=== PATIENT | female | born 1975 | race Hispanic/Latino ===

== ENCOUNTER 2024-07-03 19:25 | Observation (INO) ==
--- NOTE | 2024-07-03 20:22 | Emergency Department Note ---
HPI - Nausea/Vomiting/Diarrhea General Chief complaint: Nausea/Vomiting/Diarrhea Stated complaint: NAUSEA,VOMITING,DIARRHEA Time Seen by Provider: 07/03/24 19:50 Source: patient Mode of arrival: walk-in Limitations: no limitations History of Present Illness HPI Narrative: 49-year-old female presents to the ER with complaint of nausea and vomiting that started today, patient reports she was saw her Wednesday for similar issue and was given fluids as well as antinausea medications and that she felt better on Wednesday; however, patient reports that today she became much sicker and is unable to keep anything down. MD elicited complaint: Reports nausea, vomiting, diarrhea and abdominal pain Onset (ago): day(s) (1) Description of vomiting: Reports bilious Description of diarrhea: Reports watery Associated nausea: Yes Associated abdominal pain: Yes Location of pain: Reports diffuse Radiation: Reports diffuse Pain consistency: Reports constant Severity: moderate Quality: Reports cramping, aching and constant Exacerbating factors: Reports eating, vomiting and movement Relieving factors: Reports none Context: Reports other (none) Associated symptoms: Reports myalgias, loss of appetite, nausea/vomiting and weakness Treatment prior to arrival: Reports none Related Data Previous Rx's Medication Instructions Recorded cyclobenzaprine 10 mg tablet 10 mg PO TID PRN muscle spasm #15 07/01/24 tabs ketorolac 10 mg tablet 10 mg PO Q6H PRN pain #20 tabs 07/01/24 Allergies Allergy/AdvReac Type Severity Reaction Status Date / Time Penicillins Allergy Intermediate tremors Verified 07/03/24 19:51 cat dander Allergy Verified 07/03/24 19:51 dog dander Allergy Verified 07/03/24 19:51 house dust Allergy Verified 07/03/24 19:51 Review of Systems Status of ROS 10 or more systems reviewed and unremark able except as noted in history and below Constitutional Denies: fever, chills, change in weight, fatigue, malaise, night sweats, change in sleep pattern or other Eyes Denies: change in vision, blurry vision, blind spots, light sensitivity, eye discomfort, eye discharge, dry eyes, increased production of tears, floaters, seeing flashes or decreased night vision Ears, nose, mouth, and throat Denies: throat pain, neck pain, throat swelling, difficulty swallowing, hoarseness, mouth pain, swelling of lips/tongue, dry mouth, bad breath, ear pain, ear discharge, change in hearing, tinnitus, vertigo, nasal discharge, nasal congestion, nose bleeds or post nasal drip Cardiovascular Denies: chest pain, palpitations, edema, swelling of feet/ankles, lightheadedness, shortness of breath with exertion, shortness of breath when lying down, leg pain with exertion or bluish discoloration of hands/feet Respiratory Denies: shortness of breath, cough, wheezing, stridor, pain on inspiration, change in phlegm color, coughing up blood or chest congestion Gastrointestinal Reports: abdominal pain, nausea, vomiting and diarrhea; Denies: coffee grounds in vomit, heartburn, constipation, bloating, belching, excessive passing of gas, difficulty swallowing, feeling full early, change in bowel habits, painful bowel movements, rectal pain, rectal swelling, rectal itching, change in stool character, blood in stool, mucus in stool, white/light colored stool or fatty stool Genitourinary Denies: painful urination, urinary frequency, urinary urgency, urinary incontinence, blood in urine, difficulty voiding, decreased urine ouput, pelvic pain, painful menstruation, vaginal bleeding, vaginal discharge, irregular period, change in menstrual flow, absence of menstruation, genital lesion, genital itching, vaginal dryness, vaginal odor, pain during intercourse, difficulty conceiving or change in libido Musculoskeletal Denies: back pain, neck pain, extremity pain, extremity swelling, joint pain, limited range of motion, joint swelling, muscle cramps, muscle weakness or loss of height Integumentary/Breast Denies: rash, itching, redness, skin pain, skin tenderness, skin swelling, sores, new lesion, changing lesion, non-healing lesion, changes in skin color, jaundice, stretch montalvo, acne, nail changes, change in hair, breast pain, breast swelling, nipple discharge, breast mass, breast skin changes or change in breast shape Neurological Denies: headache, numbness in extremities, weakness in extremities, lack of coordination, dizziness, vertigo, confusion, behavioral changes, slurred speech, difficulty communicating thoughts, seizure-like activity or involuntary movements Psychiatric Reports: anxiety; Denies: mood swings, panic attacks, change in sleep pattern, hopelessness, loss of interest, irritability, paranoia, memory loss, difficulty concentrating, visual hallucinations, auditory hallucinations, tactile hallucinations, suicidal ideation or homicidal ideation Endocrine Denies: excessive urination, excessive thirst, fatigue, cold intolerance, excessive sweating, flushing, heat intolerance, deepening of the voice, change in body appearance or change in libido Hematologic/Lymphatic Denies: easy bruising, easy bleeding or enlarged lymph nodes Allergic/Immunologic Denies: hives, throat swelling, tongue swelling, facial swelling, wheezing, itchy eyes, seasonal allergies or food intolerance PFSH PFSH Medical History (Updated 07/03/24 @ 20:11 by Cat Durham RN) CVA (cerebral vascular accident) Asthma Neuropathy Surgical History (Updated 07/03/24 @ 20:11 by Cat Durham RN) History of cholecystectomy History of hysterectomy History of Social History Smoking status: never smoker Problems where you live: no known problems Feel stressed/tense/nervous/anxious/difficulty sleeping: rather much Life stressors: other (none) Life stressor details: Current medical condition Due to disability, difficulty making decisions: No Are you currently sexually active: Yes Exam Constitutional: normal general appearance, distress noted (moderate), average body habitus, no limitations and alert Vital Signs - 24 hr 07/03/24 19:35 07/03/24 19:35 07/03/24 20:00 Temperature 98.4 F Pulse Rate 90 91 H Respiratory Rate 16 16 Blood Pressure 95/52 92/58 Pulse Oximetry 100 100 98 Oxygen Delivery [facility] Room Air Room Air Room Air 07/03/24 20:30 07/03/24 21:00 07/03/24 21:30 Temperature Pulse Rate 88 94 H 90 Respiratory Rate 16 16 16 Blood Pressure 107/70 104/64 101/50 Pulse Oximetry 100 99 98 Oxygen Delivery [facility] Room Air Room Air Room Air 07/03/24 22:00 07/03/24 23:00 Temperature Pulse Rate 90 88 Respiratory Rate 16 16 Blood Pressure 99/57 120/62 Pulse Oximetry 98 97 Oxygen Delivery [facility] Room Air Room Air HENMT: normocephalic, head/scalp atraumatic, hearing grossly normal bilaterally, external ears normal, EACs normal, nasal mucous membranes normal, external nose normal, oral mucous membranes normal, oropharynx normal, dentition normal and gingiva normal Eyes: PERRL, EOMs intact bilaterally, conjunctivae normal, no scleral icterus, no papilledema, normal visual mcdaniel by confrontation, alignment normal, periorbital findings normal and no nystagmus Neck/C-Spine: visual inspection normal, trachea midline, cervical spine nont lee, cervical full ROM noted, supple, no meningeal signs and thyroid normal Lymph: no lymphadenopathy noted and no lymphedema noted Chest: inspection of chest normal, inspection of breast(s) abnormal (deferred) and palpation of breast(s) abnormal (deferred) Respiratory: breath sounds equal bilaterally, normal respiratory effort, clear to auscultation bilaterally, no wheezes, no rales, no retractions and no use of accessory muscles Cardiovascular: normal heart rate noted, regular rhythm noted, no gallop, no rub, no murmur, no JVD, no clicks, peripheral pulses 2+ throughout and no additional abnormal heart sounds Gastrointestinal: abdomen normal to inspection, abdomen soft to palpation, tender to palpation (moderate) and other (Diffuse abdominal pain), nondistended, normoactive bowel sounds, no hepatosplenomegaly, no masses, no pulsatile mass, no ascites, no hernia and rectal exam abnormal (deferred) Genitourinary: no CVA tenderness, bladder normal to palpation, vaginal abnormality noted (deferred) and cervical abnormality noted (deferred) Back/Pelvis: spine normal to inspection, no thoracic spine tenderness, no lumbar spine tenderness, thoracic spine ROM normal, lumbar spine ROM normal and no paraspinal muscle tenderness noted Extremities: normal to inspection, normal to palpation, no tenderness, full ROM, no joint enlargement and no deformity Neurology: family day care provider II-XII intact, no movement abnormality noted, no focal motor deficit noted, no sensory deficits noted, gait normal, speech normal, coordination normal, no pronator drift noted, no fasciculations noted and GCS normal Psychiatry: Mental Status Exam documented within this Exam's Psych section mental status grossly normal, oriented x3, thought process normal, cooperative, affect normal, psychomotor activity normal and memory normal Feel stressed/tense/nervous/anxious/difficulty sleeping: rather much Life stressors: other (none) Life stressor details: Current medical condition Due to disability, difficulty making decisions: No Skin: skin color normal, no rash, no lesions, no ecchymosis noted, no wounds, no lacerations, skin turgor normal, no jaundice, no petechiae, no mottling, nails normal and no alopecia Course Course Hospital Course: 49-year-old female patient presented to ER with complaint of diffuse abdominal pain with nausea and vomiting that began earlier this morning has been evaluated by physical exam, CBC, CMP, urinalysis, lactic acid, swabs for COVID, flu, and has had a CT of the abdomen pelvis with contrast results as noted in charting. Patient has received 1 L normal saline as well as 25 mg Phenergan and 10 mg of Reglan and continues to have vomiting. Patient CT is unremarkable and change status from previous CT 2 days ago with the exception of need for follow-up for scope. Patient will be admitted to the [facility] floor under observation status for intractable nausea and vomiting, abdominal pain, and pain control. Patient and family agree with treatment plan as patient has failed outpatient treatment issue. Vital Signs Vital signs: Vital Signs Temperature 98.4 F 07/03/24 19:35 Pulse Rate 90 07/03/24 19:35 Respiratory Rate 16 07/03/24 19:35 Blood Pressure 95/52 07/03/24 19:35 Pulse Oximetry 100 07/03/24 19:35 Oxygen Delivery Method Room Air 07/03/24 19:35 Temperature 98.4 F 07/03/24 19:35 Pulse Rate 88 07/03/24 23:00 Respiratory Rate 16 07/03/24 23:00 Blood Pressure 120/62 07/03/24 23:00 Pulse Oximetry 97 07/03/24 23:00 Oxygen Delivery Method Room Air 07/03/24 23:00 Discharge Plan Discharge Patient Disposition: Admitted As Observation Condition: Stable Chief Complaint: Nausea/Vomiting/Diarrhea Clinical Impression: Gastroenteritis, Intractable nausea and vomiting, Abdominal pain, Adnexal cyst Prescriptions: No Action ketorolac 10 mg tablet 10 mg PO Q6H PRN (Reason: pain) Qty: 20 0RF Rx Instructions: maximum total duration of 5 days from all oral, intranasal, or parenteral formulations cyclobenzaprine 10 mg tablet 10 mg PO TID PRN (Reason: muscle spasm) Qty: 15 0RF Print Language: Mosotho Referrals: Provider,NO PCP [Primary Care Provider] - Time of Disposition: 23:15
[2024-07-03] MEDS ORDERED: PROMETHAZINE HCL 25 MG/ML AMPUL IV ONE (20:27)
[2024-07-03] MEDS ORDERED: 0.9 % SODIUM CHLORIDE 50 ML IV ONE ×2 (20:27→21:41)
[2024-07-03] MEDS: 0.9 % SODIUM CHLORIDE 1000 ML 1,000 ML IV STA (20:32)
[2024-07-03] MEDS: PROMETHAZINE HCL 25 MG in 0.9 % SODIUM CHLORIDE 50 ML IV STA (20:33)
[2024-07-03 21:08] LABS: Basophils%(Percent) Auto 0.3 (0.1-0.85); Eosinophils%(Percent) Auto 0.4 % (0.4-2.8); Granulocytes % - Auto 91.4 % (47.8-71.3); Granulocytes#(Absolute)- Auto 7.2 (2.3-6.0); Hematocrit 35.6 % (35.9-46.7); Mean Corpuscular Volume 91.8 fl (81.0-93.7); Monocytes #(Absolute)- Auto 0.2 (1.1-3.1); Platelet Count 149 K/uL (152-353); White Blood Count 7.9 K/uL (4.3-9.3)
[2024-07-03 21:20] LABS: Urine Appearance CLEAR (CLEAR); Urine Blood 4+ (NEG - TRACE); Urine Color YELLOW (STRAW/YELL.); Urine Urobilinogen Normal (NORMAL)
[2024-07-03 21:21] LABS: Urine Amorphous Sediment Negative (Negative); Urine Yeast Negative (Negative)
[2024-07-03 21:33] LABS: Potassium 3.9 mmol/L (3.6-5.2)
[2024-07-03] MEDS ORDERED: METOCLOPRAMIDE HCL 5 MG/ML VIAL ONE (21:39)
[2024-07-03] MEDS: METOCLOPRAMIDE HCL 10 MG in 0.9 % SODIUM CHLORIDE 50 ML IVP ONE (21:48)
[2024-07-03] MEDS ORDERED: ACETAMINOPHEN 1000 MG/100 ML 1,000 MG/100 ML IV.SOLN IV PRN (23:47)
[2024-07-03] MEDS ORDERED: KETOROLAC 30 MG/ML INJ VIAL IVP PRN (23:47)
[2024-07-03] MEDS ORDERED: PROMETHAZINE HCL 25 MG in 0.9 % SODIUM CHLORIDE 50 ML IV PRN (23:47)
[2024-07-03] MEDS ORDERED: MAGNESIUM, ALUMINUM HYDROXIDE 30 ML ORAL.SUSP PO PRN (23:47)
[2024-07-03] MEDS ORDERED: MORPHINE SULFATE 4 MG/ML CARTRIDGE IV PRN (23:47)
[2024-07-04] MEDS ORDERED: 0.9 % SODIUM CHLORIDE MB+ 50 ML IV ONE (00:01)
[2024-07-04] MEDS ORDERED: CEFTRIAXONE SODIUM 1 GM VIAL ONE ×2 (00:01→09:32)
[2024-07-04] MEDS: CEFTRIAXONE SODIUM 1 GM in 0.9 % SODIUM CHLORIDE MB+ 50 ML IV SCH (00:06)
[2024-07-04] MEDS: 0.9 % SODIUM CHLORIDE 1000 ML 1,000 ML IV SCH (00:20)
[2024-07-04] MEDS: ONDANSETRON HCL/PF 4 MG/2 ML VIAL INJ PRN (06:05)
[2024-07-04] MEDS ORDERED: ONDANSETRON HCL/PF 4 MG/2 ML VIAL ONE (06:05)
[2024-07-04 06:30] LABS: Basophils%(Percent) Auto 0.1 (0.1-0.85); Granulocytes#(Absolute)- Auto 4.9 (2.3-6.0); Hematocrit 34.3 % (35.9-46.7); Monocytes #(Absolute)- Auto 0.2 (1.1-3.1); Monocytes %(Percent)- Auto 3.6 % (3.6-9.8); Platelet Count 145 K/uL (152-353); White Blood Count 5.4 K/uL (4.3-9.3)
[2024-07-04 06:36] LABS: Potassium 3.5 mmol/L (3.6-5.2)
[2024-07-04] MEDS ORDERED: 0.9 % SODIUM CHLORIDE 50 ML IV ONE (09:32)
[2024-07-04] MEDS ORDERED: 0.9 % SODIUM CHLORIDE 1000 ML 1,000 ML IV ONE (09:39)
[2024-07-04] MEDS ORDERED: POTASSIUM CHLORIDE 20 MEQ TAB.ER.PRT PO ONE (10:57)
[2024-07-04] MEDS: POTASSIUM CHLORIDE 20 MEQ TAB.ER.PRT PO ONE (10:58)
--- NOTE | 2024-07-04 13:34 | Short Stay Summary ---
H&P: HPI History of Present Illness Chief complaint: INTRACTABLE NAUSEA VOMITING,GASTROENTERITIS,ABDOMI Narrative: 49-year-old female presents to the ER with complaint of nausea and vomiting that started Wednesday and seen in the ER without any improvement. Patient reports she was saw her Wednesday for similar issue and was given fluids as well as antinausea medications. however, patient reports that today she became much sicker and is unable to keep anything down and very weak and abdominal pain. her young child sick Wednesday but he got medicine and his symptoms resolved. no diarrhea and no fever, positive chills. no suspicious foods MD elicited complaint: Reports nausea, vomiting, diarrhea and abdominal pain Review of Systems Status of ROS 10 or more systems reviewed and unremark able except as noted in history and below Constitutional Denies: fever, chills, change in weight, fatigue, malaise, night sweats, change in sleep pattern or other Eyes Denies: change in vision, blurry vision, blind spots, light sensitivity, eye discomfort, eye discharge, dry eyes, increased production of tears, floaters, seeing flashes or decreased night vision Ears, nose, mouth, and throat Denies: throat pain, neck pain, throat swelling, difficulty swallowing, hoarseness, mouth pain, swelling of lips/tongue, dry mouth, bad breath, ear pain, ear discharge, change in hearing, tinnitus, vertigo, nasal discharge, nasal congestion, nose bleeds or post nasal drip Cardiovascular Denies: chest pain, palpitations, edema, swelling of feet/ankles, lightheadedness, shortness of breath with exertion, shortness of breath when lying down, leg pain with exertion or bluish discoloration of hands/feet Respiratory Denies: shortness of breath, cough, wheezing, stridor, pain on inspiration, change in phlegm color, coughing up blood or chest congestion Gastrointestinal Reports: abdominal pain, nausea, vomiting and diarrhea; Denies: coffee grounds in vomit, heartburn, constipation, bloating, belching, excessive passing of gas, difficulty swallowing, feeling full early, change in bowel habits, painful bowel movements, rectal pain, rectal swelling, rectal itching, change in stool character, blood in stool, mucus in stool, white/light colored stool or fatty stool Genitourinary Denies: painful urination, urinary frequency, urinary urgency, urinary incontinence, blood in urine, difficulty voiding, decreased urine ouput, pelvic pain, painful menstruation, vaginal bleeding, vaginal discharge, irregular period, change in menstrual flow, absence of menstruation, genital lesion, genital itching, vaginal dryness, vaginal odor, pain during intercourse, difficulty conceiving or change in libido Musculoskeletal Denies: back pain, neck pain, extremity pain, extremity swelling, joint pain, limited range of motion, joint swelling, muscle cramps, muscle weakness or loss of height Integumentary/Breast Denies: rash, itching, redness, skin pain, skin tenderness, skin swelling, sores, new lesion, changing lesion, non-healing lesion, changes in skin color, jaundice, stretch montalvo, acne, nail changes, change in hair, breast pain, breast swelling, nipple discharge, breast mass, breast skin changes or change in breast shape Neurological Denies: headache, numbness in extremities, weakness in extremities, lack of coordination, dizziness, vertigo, confusion, behavioral changes, slurred speech, difficulty communicating thoughts, seizure-like activity or involuntary movements Psychiatric Reports: anxiety; Denies: mood swings, panic attacks, change in sleep pattern, hopelessness, loss of interest, irritability, paranoia, memory loss, difficulty concentrating, visual hallucinations, auditory hallucinations, tactile hallucinations, suicidal ideation or homicidal ideation Endocrine Denies: excessive urination, excessive thirst, fatigue, cold intolerance, excessive sweating, flushing, heat intolerance, deepening of the voice, change in body appearance or change in libido Hematologic/Lymphatic Denies: easy bruising, easy bleeding or enlarged lymph nodes Allergic/Immunologic Denies: hives, throat swelling, tongue swelling, facial swelling, wheezing, itchy eyes, seasonal allergies or food intolerance [facility] Medical History (Updated 07/04/24 @ 13:34 by Ami Ruiz DO) Diverticulosis CVA (cerebral vascular accident) Asthma Neuropathy Surgical History History of cholecystectomy History of hysterectomy History of Social History Smoking status: never smoker Problems where you live: no known problems Highest level of school completed/degree received: high school Feel stressed/tense/nervous/anxious/difficulty sleeping: rather much Life stressors: other (none) Life stressor details: Current medical condition Due to disability, difficulty making decisions: No Are you currently sexually active: Yes Meds Home Medications and Allergies Home Medications Medication Instructions Recorded Confirmed Type ondansetron 8 mg disintegrating 8 mg PO Q8H PRN nausea and 07/04/24 Rx tablet vomiting #10 tabs pantoprazole 40 mg tablet,delayed 40 mg PO BID gastritis #30 tabs 07/04/24 Rx release (Protonix) Allergies Allergy/AdvReac Type Severity Reaction Status Date / Time Penicillins Allergy Intermediate tremors Verified 07/03/24 19:51 cat dander Allergy Verified 07/03/24 19:51 dog dander Allergy Verified 07/03/24 19:51 house dust Allergy Verified 07/03/24 19:51 Exam Constitutional: abnormal general appearance (disheveled), distress noted (mi ld), average body habitus, no limitations and alert Vital Signs - 24 hr 07/03/24 19:35 07/03/24 19:35 07/03/24 20:00 Temperature 98.4 F Pulse Rate 90 91 H Pulse Rate [Right] Respiratory Rate 16 16 Blood Pressure 95/52 92/58 Blood Pressure [Ri ght Arm] Pulse Oximetry 100 100 98 [facility] Room Air Room Air 07/03/24 20:30 07/03/24 21:00 07/03/24 21:30 Temperature Pulse Rate 88 94 H 90 Pulse Rate [Right] Respiratory Rate 16 16 16 Blood Pressure 107/70 104/64 101/50 Blood Pressure [Ri ght Arm] Pulse Oximetry 100 99 98 Oxygen Delivery [facility] Air Room Air Room Air 07/03/24 22:00 07/03/24 23:00 07/04/24 00:00 Temperature 98.6 F Pulse Rate 90 88 90 Pulse Rate [Right] Respiratory Rate 16 16 16 Blood Pressure 99/57 120/62 104/58 Blood Pressure [Ri ght Arm] Pulse Oximetry 98 97 98 [facility] Air Room Air Room Air 07/04/24 00:00 07/04/24 00:15 07/04/24 00:34 Temperature 98.6 F 98.6 F Pulse Rate 90 Pulse Rate [Right] 83 Respiratory Rate 16 16 Blood Pressure 104/58 Blood Pressure [Ri ght Arm] 97/54 Pulse Oximetry 98 97 97 Oxygen Delivery Me thod Room Air Room Air 07/04/24 01:00 07/04/24 05:00 07/04/24 07:00 Temperature 98.2 F Pulse Rate Pulse Rate [Right] 86 82 85 Respiratory Rate 14 16 18 Blood Pressure Blood Pressure [Ri ght Arm] 104/53 102/48 100/53 Pulse Oximetry 98 97 98 Oxygen Delivery Pr thod Room Air Room Air Room Air 07/04/24 12:24 Temperature 98.2 F Pulse Rate Pulse Rate [Right] 86 Respiratory Rate 20 Blood Pressure Blood Pressure [Ri ght Arm] 101/58 Pulse Oximetry 98 [facility] Air HENMT: normocephalic, head/scalp atraumatic, hearing grossly normal bilaterally, external ears normal, EACs normal, nasal mucous membranes normal, external nose normal, oral mucous membranes abnormal (dry), oropharynx normal, dentition normal and gingiva normal Eyes: PERRL, EOMs intact bilaterally, conjunctivae normal, no scleral icterus, no papilledema, normal visual mcdaniel by confrontation, alignment normal, periorbital findings normal and no nystagmus Neck/C-Spine: visual inspection normal, trachea midline, cervical spine nontender, cervical full ROM noted, supple, no meningeal signs and thyroid normal Lymph: no lymphadenopathy noted and no lymphedema noted Chest: inspection of chest normal Respiratory: breath sounds equal bilaterally, normal respiratory effort, clear to auscultation bilaterally, no wheezes, no rales, no retractions and no use of accessory muscles Cardiovascular: normal heart rate noted, regular rhythm noted, no gallop, no rub, no murmur, no JVD, no clicks, peripheral pulses 2+ throughout and no additional abnormal heart sounds Gastrointestinal: abdomen normal to inspection, abdomen soft to palpation, tender to palpation (moderate) and other (Diffuse abdominal pain), nondistended, abnormal bowel sounds noted (hyperactive bowel sounds), no hepatosplenomegaly, no masses, no pulsatile mass, no ascites, no hernia and rectal exam abnormal (deferred) Genitourinary: no CVA tenderness, bladder normal to palpation and external appearance normal Back/Pelvis: spine normal to inspection, no thoracic spine tenderness, no lumbar spine tenderness, thoracic spine ROM normal, lumbar spine ROM normal and no paraspinal muscle tenderness noted Extremities: normal to inspection, normal to palpation, no tenderness, full ROM, no joint enlargement and no deformity Neurology: manager filter II-XII intact, no movement abnormality noted, no focal motor deficit noted, no sensory deficits noted, deep tendon reflexes 2+ bilaterally, gait normal, speech normal, coordination normal, no pronator drift noted, no fasciculations noted and GCS normal Psychiatry: Mental Status Exam documented within this Exam's Psych section mental status grossly normal, oriented x3, thought process normal, cooperative, affect abnormality noted (depressed), psychomotor activity normal and memory normal Feel stressed/tense/nervous/anxious/difficulty sleeping: rather much Life stressors: other (none) Life stressor details: Current medical condition Due to disability, difficulty making decisions: No Skin: skin color abnormal Reports (pale), no rash, no lesions, no ecchymosis noted, no wounds, no lacerations, skin turgor abnormal Reports (tenting), no jaundice, no petechiae, no mottling, nails normal and no alopecia Assessment and Plan Assessment and Plan (1) Intractable nausea and vomiting: Code(s): R11.2 - Nausea with vomiting, unspecified (2) Viral gastroenteritis: Code(s): A08.4 - Viral intestinal infection, unspecified (3) Dehydration: Code(s): E86.0 - Dehydration (4) Hypokalemia: Code(s): E87.6 - Hypokalemia (5) Anemia: Qualifiers: Anemia type: other cause Other causes of anemia: other cause, not class ified Qualified Code(s): D64.89 - Other specified anemias Code(s): D64.9 - Anemia, unspecified (6) Diverticulosis: Code(s): K57.90 - Diverticulosis of intestine, part unspecified, without perforation or abscess without bleeding (7) Gastritis: Code(s): K29.70 - Gastritis, unspecified, without bleeding Results Labs Labs: CBC WBC 5.4 K/uL (4.3-9.3) 07/04/24 06:17 RBC 3.8 M/uL (4.00-5.50) L 07/04/24 06:17 Hgb 12.0 gm/dL (12.5-15.8) L 07/04/24 06:17 Hct 34.3 % (35.9-46.7) L 07/04/24 06:17 MCV 91.0 fl (81.0-93.7) 07/04/24 06:17 MCH 31.9 pg (27.6-32.2) 07/04/24 06:17 MCHC 35.1 g/dl (33.1-35.3) 07/04/24 06:17 RDW 13.1 % (11.4-14.2) 07/04/24 06:17 Plt Count 145 K/uL (152-353) L 07/04/24 06:17 MPV 8.1 fl (6.9-10.8) 07/04/24 06:17 Gran % 91.0 % (47.8-71.3) H 07/04/24 06:17 Lymph % (Auto) 5.3 % (20.0-43.0) L 07/04/24 06:17 [place] % (Auto) 3.6 % (3.6-9.8) 07/04/24 06:17 Eos % (Auto) 0.0 % (0.4-2.8) L 07/04/24 06:17 Baso % (Auto) 0.1 (0.1-0.85) 07/04/24 06:17 Lymph # (Auto) 0.3 (1.1-3.1) L 07/04/24 06:17 [place] # (Auto) 0.2 (1.1-3.1) L 07/04/24 06:17 Eos # (Auto) 0.0 (0.0-0.2) 07/04/24 06:17 Baso # (Auto) 0.0 (0.0-0.1) 07/04/24 06:17 Absolute Gran (auto) 4.9 (2.3-6.0) 07/04/24 06:17 BMP Sodium 137 mmol/L (136-145) 07/04/24 06:17 Potassium 3.5 mmol/L (3.6-5.2) L 07/04/24 06:17 Chloride 107.0 mmol/L (98-107) 07/04/24 06:17 Carbon Dioxide 20 mmol/L (21-32) L 07/04/24 06:17 Anion Gap 10.0 mEq/L (4-14) 07/04/24 06:17 BUN 11 mg/dL (7-18) 07/04/24 06:17 Creatinine 0.6 mg/dL (0.6-1.3) 07/04/24 06:17 Estimated GFR 109.3 (>59.9) 07/04/24 06:17 Glucose 111 mg/dL (70-110) H 07/04/24 06:17 Calcium 7.7 mg/dL (8.5-10.1) L 07/04/24 06:17 Magnesium 1.8 mg/dL (1.8-2.4) 07/03/24 20:50 Total Bilirubin 0.53 mg/dL (0.0-1.0) 07/04/24 06:17 AST 27 U/L (15-37) 07/04/24 06:17 ALT 39 U/L (30-65) 07/04/24 06:17 Alkaline Phosphatase 68 U/L (50-136) 07/04/24 06:17 Total Protein 6.3 g/dL (6.4-8.2) L 07/04/24 06:17 Albumin 3.0 g/dL (3.4-5.0) L 07/04/24 06:17 Liver Function Total Bilirubin 0.53 mg/dL (0.0-1.0) 07/04/24 06:17 AST 27 U/L (15-37) 07/04/24 06:17 ALT 39 U/L (30-65) 07/04/24 06:17 Alkaline Phosphatase 68 U/L (50-136) 07/04/24 06:17 Total Protein 6.3 g/dL (6.4-8.2) L 07/04/24 06:17 Albumin 3.0 g/dL (3.4-5.0) L 07/04/24 06:17 Urine Urine Color Yellow (STRAW/YELL.) 07/03/24 20:22 Urine Appearance Clear (CLEAR) 07/03/24 20:22 Ur Specific [place] 1.030 (1.001-1.035) 07/03/24 20:22 Urine Protein Negative (NEGATIVE) 07/03/24 20:22 Urine Glucose (UA) Normal (NORMAL) 07/03/24 20:22 Urine Ketones Large (NEGATIVE) 07/03/24 20:22 Urine Occult Blood 4+ (NEG - TRACE) 07/03/24 20:22 Urine Nitrite Negative (NEGATIVE) 07/03/24 20:22 Urine Bilirubin Negative (NEGATIVE) 07/03/24 20:22 Urine Urobilinogen Normal (NORMAL) 07/03/24 20:22 Ur Leukocyte Esterase Negative (NEGATIVE) 07/03/24 20:22 Imaging Imaging ordered: CT scan - abdomen Radiologist's impression: CT ABDOMEN PELVIS W CON HISTORY: diffuse abd paindiffuse abd pain; isovue 300 98ml COMPARISON: None. TECHNIQUE: Following the intravenous administration of iodinated contrast, spiral CT imaging was performed through the abdomen and pelvis and axial, coronal, and sagittal CT images were generated. FINDINGS: The lung bases are clear without effusion. The heart size is normal. The liver is normal. The gallbladder has been removed. The pancreas, spleen, adrenal glands, and both kidneys are normal. Urinary bladder is normal. The uterus is normal. There is a left adnexal cyst measuring 2.2 cm in diameter. There is a small hiatal hernia. There is questionably some gastric wall thickening which could be gastritis. Consider endoscopy. There is a duodenal diverticulum without evidence for diverticulitis. The small bowel loops are otherwise normal. The appendix is normal. There is diffuse diverticulosis coli. There is no definitive diverticulitis. There is no definitive colonic mass although there are some questionable areas of wall thickening versus collapse. A colon screening exam is recommended. There is no pathologic mesenteric adenopathy. There is degeneration of the right hip. There is no worrisome bone marrow lesion IMPRESSION: 1. Diffuse diverticulosis coli without definitive diverticulitis. 2. There are some worrisome areas in the colon which could be malignancy or underdistended bowel and a colon screening exam is recommended. 3. There is questionable wall thickening in the stomach which could be evidence for gastritis and endoscopy should be considered. 4. There is a duodenal diverticulum without duodenal diverticulitis. 5. There is a 2.2 cm left adnexal cyst. 07/01/2024 EXAM: CT ABDOMEN AND PELVIS WITHOUT INTRAVENOUS CONTRAST HISTORY: Lower back and abdominal pain. TECHNIQUE: Spiral axial CT images are obtained through the abdomen and pelvis without the administration of intravenous contrast. Additional coronal and sagittal reformatted images are reconstructed. COMPARISON: None available. FINDINGS: GASTROINTESTINAL TRACT: There is severe diffuse colonic diverticulosis, alonzo cially severe in the sigmoid region, without CT evidence for acute diverticulitis. No evidence for bowel herniation, bowel obstruction, or colitis. A normal-appearing appendix is seen. Abundant fecal material is seen within the large bowel loops; nonspecific finding; rule out constipation. GENITOURINARY SYSTEM: The kidneys are unremarkable. There is no ureteral calculus or stigmata of obstructive uropathy. The urinary bladder is grossly unremarkable for a non-dedicated exam. REPRODUCTIVE SYSTEM: Retroverted uterus. The uterus and adnexa appear grossly unremarkable for a CT scan. Consider follow-up dedicated imaging as clinically warranted. CT ABDOMEN: Status post cholecystectomy. The liver, spleen, pancreas, adrenal glands, aorta, and inferior vena cava are within normal limits for a noncontrast CT scan. There is no intra-abdominal or retroperitoneal lymphadenopathy, free fluid, or free air seen. No abdominal herniation is noted. CT PELVIS: No pelvic sidewall or inguinal lymphadenopathy is seen. No inguinal herniation is noted. No free fluid or free air is seen. Vascular embolization coils and surgical clips are seen in the right posterior lateral pelvic sidewall. BONES AND JOINTS: The visualized bony structures are within normal limits. LUNG BASES: The lung bases are clear. IMPRESSION: 1. No gross acute abnormality seen. 2. No evidence for ureteral stones or obstructive uropathy. 3. Severe diffuse colonic diverticulosis, especially severe in the sigmoid region, without CT evidence for acute diverticulitis. 4. No evidence for bowel herniation, bowel obstruction, appendicitis or colitis. 5. Abundant fecal material is seen within the large bowel loops; nonspecific finding; rule out constipation. 6. No free fluid, free air, mass lesions, or lymphadenopathy seen. DS: Providers Provider Date of admission: 07/03/24 23:47 Primary care physician: NO PCP Provider Admitting clinician: Raman Mayer Attending physician on admission: Ami Ruiz Attending physician on discharge: Ami Ruiz Discharging clinician: Ami Ruiz Anticipated date of discharge: 07/04/24 DS: Summary Hospital Course Hospital Course: 49-year-old female patient presented to ER with complaint of diffuse abdominal pain with nausea and vomiting that began earlier this morning has been evaluated by physical exam, CBC, CMP, urinalysis, lactic acid, swabs for COVID, flu, and has had a CT of the abdomen pelvis with contrast results as noted in charting. Patient has received 1 L normal saline as well as 25 mg Phenergan and 10 mg of Reglan and continues to have vomiting. Patient CT is unremarkable and change status from previous CT 2 days ago with the exception of need for follow-up for scope. Patient will be admitted to the [facility] floor under observation status for intractable nausea and vomiting, abdominal pain, and pain control. Patient and family agree with treatment plan as patient has failed outpatient treatment issue. emesis resolved with fluids and meds patient tolerated lunch Status at Discharge Functional status at discharge: independent ambulation Overall status at discharge: patient is progressing back to baseline Time Spent with Patient Time attestation: Total time spent providing and/or coordinating discharge services: Time spent: greater than 30 minutes Discharge Plan Discharge Disposition: Home, Self-Care Condition: Improved Discharge Medications: New pantoprazole [Protonix] 40 mg tablet,delayed release (DR/EC) 40 mg PO BID Qty: 30 0RF ondansetron 8 mg tablet,disintegrating 8 mg PO Q8H PRN (Reason: nausea and vomiting) Qty: 10 0RF Discontinued ketorolac 10 mg tablet 10 mg PO Q6H PRN (Reason: pain) Qty: 20 0RF Rx Instructions: maximum total duration of 5 days from all oral, intranasal, or parenteral formulations cyclobenzaprine 10 mg tablet 10 mg PO TID PRN (Reason: muscle spasm) Qty: 15 0RF Discharge Orders: Discharge Order (Routine); Ordered 07/04/24 Ordered By: Ami Ruiz Activity: increase activity as tolerated Diet: other Diet Detail: start bland and small frequent meals room temp and avoid spices Interventions: MED/SURG & ICU Observation Charge Sheet Last Done: 07/04/24 06:30 Activity Restrictions/Additional Instructions: increase water and electrolyte drinks follow up PCP 3-5 days return to ER or PCP as appropiate marylin pain or nausea returns or patient has any concerns avoid contacts and wear a mask around people and avoid extreme temps and stress Forms: Portal/Health Info Access Inst Follow-Ups: Provider,NO PCP [Primary Care Provider] -
[2024-07-04 14:40] VITALS: BP 105/67; PULSE 84; RESP 18; TEMP 97.8
== END 2024-07-04 14:19 | disposition home or self-care (01) ==
LOC: EDHOLD 19:25 → ED 19:25 → EDHOLD 07-04 00:15
PROVIDERS: ADMIT Nurse Practitioner Family; ATTEND Family Medicine
DX: K57.90 Diverticulosis of intestine, part unspecified, without perforation or abscess without bleeding; A08.4 Viral intestinal infection, unspecified; E87.6 Hypokalemia; D64.89 Other specified anemias; E86.0 Dehydration; R11.2 Nausea with vomiting, unspecified; K29.70 Gastritis, unspecified, without bleeding; R10.9 Unspecified abdominal pain; N83.292 Other ovarian cyst, left side